=== PATIENT | female | born 1970 | race American Indian/Alaskan Native ===

== ENCOUNTER 2017-06-19 10:19 | Emergency (ER) | payer SELFPAY ==
[2017-06-19 10:50] LABS: Hematocrit 29.8 % (30.3-42.9); Hemoglobin 9.3 gm/dl (10.1-14.3); Mean Corpuscular HGB Conc 31 % (30-34); Mean Corpuscular Volume 71 fl (79-97); Platelet Count 321 K/mm3 (140-440); Red Blood Count 4.19 M/mm3 (3.65-5.03); White Blood Count 5.2 K/mm3 (4.5-11.0)
[2017-06-19 11:07] LABS: Alanine Aminotransferase 24 units/L (7-56); Albumin 4.3 g/dL (3.9-5); Albumin/Globulin Ratio 1.1 %; Alkaline Phosphatase 57 units/L (35-129); Anion Gap 21 mmol/L; Blood Urea Nitrogen 5 mg/dL (7-17); Calcium 8.6 mg/dL (8.4-10.2); Carbon Dioxide 22 mmol/L (22-30); Chloride 101.2 mmol/L (98-107); Glucose 87 mg/dL (65-100); Lipase 23 units/L (13-60); Mean Corpuscular Hemoglobin 22 pg (28-32); Potassium 3.5 mmol/L (3.6-5.0); Red Cell Distribution Width 26.8 % (13.2-15.2); Sodium 141 mmol/L (137-145); Total Protein 8.1 g/dL (6.3-8.2)
[2017-06-19 11:35] LABS: Basophils % (Manual) 0 % (0.0-1.8); Blastocytes % (Manual) 0 %
[2017-06-19 11:36] LABS: Anisocytosis 2+; Diff Status Complete; Hypochromasia 2+; Platelet Estimate Cons; Target Cells 1+
[2017-06-19 11:51] LABS: Bilirubin,Urine NEG (Negative); Blood,Urine SM (Negative); Ketones,Urine NEG (Negative); Leukocyte Esterase,Urine MOD (Negative); Nitrite,Urine NEG (Negative); Protein,Urine <15 mg/dL mg/dL (Negative); Urobilinogen,Urine < 2.0 mg/dL (<2.0)
[2017-06-19] MEDS ORDERED: SUBLIMAZE IV ONE (11:52)
[2017-06-19] MEDS ORDERED: PEPCID PO ONE (11:52)
[2017-06-19] MEDS ORDERED: ZOFRAN IV ONE (11:53)
[2017-06-19] MEDS ORDERED: NACL ONE (12:58)
--- NOTE | 2017-06-19 13:10 | Emergency Department Report ---
ED Abdominal Pain HPI - General Chief Complaint: Abdominal Pain Stated Complaint: ABD PAIN Time Seen by Provider: 06/19/17 11:33 Source: patient Mode of arrival: Wheelchair Limitations: No Limitations - History of Present Illness Initial Comments: Patient is a 46-year-old female who presents with abdominal pain that is located in the umbilical area it is a 6 out of 10 and is nonradiating nothing makes it better or worse. It has been going on for about 1 month she says it is intermittent. She is been trying aspirin to control the pain. Patient also reports mild shortness of breath on exertion but this is after she smokes she smokes one pack per day. Patient is also complaining of left foot pain is located in the sole of her heel is a 2 out 10 walking makes it worse nothing makes it better she is noticed no swelling with the pain. All of patient's complaints have been going on for 1 month she comes to the ED because he wants to get symptoms "get checked out." Severity scale (0 -10): 10 - Related Data Previous Rx's Medication Instructions Recorded Last Taken Type Lisinopril [Zestril TAB] 20 mg PO QDAY #30 tablet 08/24/13 08/24/13 Rx Acetaminophen [Tylenol] 500 mg PO Q6HR #30 tablet 06/19/17 Unknown Rx Allergies Allergy/AdvReac Type Severity Reaction Status Date / Time No Known Allergies Allergy Verified 06/19/17 10:33 ED Review of Systems ROS: Stated complaint: ABD PAIN Other details as noted in HPI Comment: All other systems reviewed and negative Constitutional: denies: chills, fever Eyes: denies: eye pain, eye discharge, vision change ENT: denies: ear pain, throat pain Respiratory: cough, SOB with exertion Cardiovascular: denies: chest pain, palpitations Endocrine: no symptoms reported Gastrointestinal: as per HPI, abdominal pain, nausea Genitourinary: denies: urgency, dysuria, discharge Musculoskeletal: other (Foot pain ). denies: joint swelling Skin: denies: rash, lesions Neurological: weakness, paresthesias Psychiatric: denies: as per HPI Hematological/Lymphatic: denies: as per HPI ED Past Medical Hx - Past Medical History Hx Hypertension: Yes Hx Congestive Heart Failure: No Hx Diabetes: Yes (no meds) Hx Asthma: (no meds) Hx COPD: No - Surgical History Additional Surgical History: TONSILLECTOMY. X 3. TUBAL LIGATION - Social History Smoking Status: Current Every Day Smoker Substance Use Type: Alcohol - Medications Home Medications: Home Medications Medication Instructions Recorded Confirmed Last Taken Type Lisinopril [Zestril TAB] 20 mg PO QDAY #30 tablet 08/24/13 08/24/13 Rx Acetaminophen [Tylenol] 500 mg PO Q6HR #30 tablet 06/19/17 Unknown Rx ED Physical Exam - General Limitations: No Limitations General appearance: alert - Head Head exam: Present: atraumatic - Eye Eye exam: Present: normal appearance - ENT ENT exam: Present: mucous membranes moist - Neck Neck exam: Present: normal inspection - Respiratory Respiratory exam: Present: normal lung sounds bilaterally. Absent: respiratory distress - GI/Abdominal GI/Abdominal exam: Present: tenderness (in umbilical area no rebound or guarding ) - Rectal Rectal exam: Present: deferred - Extremities Exam Extremities exam: Present: normal inspection, full ROM, normal capillary refill - Back Exam Back exam: Present: normal inspection - Neurological Exam Neurological exam: Present: alert, oriented X3 - Psychiatric Psychiatric exam: Present: normal affect - Skin Skin exam: Present: warm, dry ED Course Vital Signs 06/19/17 06/19/17 10:26 12:23 Temperature 98.6 F Pulse Rate 80 86 Respiratory 17 16 Rate Blood Pressure 131/85 Blood Pressure 99/69 [Left] O2 Sat by Pulse 100 100 Oximetry - Reevaluation(s) Reevaluation #1: 06/19/17 13:13 Patient received pain medicine. She states the pain is about a 5 out of 10 slightly nauseas. Patient is being taken to CT scan. Reevaluation #2: 06/19/17 14:56 Patient's pain has improved to 4 out of 10 we'll give oral Percocet and we'll send patient home. CT scan showed no acute findings and abdomen and no findings on labs can explain patient's symptoms will send patient home with tylenol. Discussed patient's need to follow up with the PCP. Patient agrees with plan and all questions about patient's care have been answered. ED Medical Decision Making - Lab Data Result diagrams: 06/19/17 10:35 06/19/17 10:35 - Medical Decision Making Chief medical diagnosis: Peptic ulcer disease Differential diagnosis: UTI, pancreatitis, abdominal tumor, metabolic abnormality. will obtain CBC, CMP, lipase, CT scan, anti-medic, pain medicine, fluids and we' ll reassess patient CT scan is unrevealing labs are unrevealing will send patient home. Critical care attestation.: If time is entered above; I have spent that time in minutes in the direct care of this critically ill patient, excluding procedure time. ED Disposition Clinical Impression: Abdominal pain, Nausea Disposition: TO HOME OR SELFCARE Is pt being admited?: No Does the pt Need Aspirin: No Condition: Good Instructions: Abdominal Pain (ED) Additional Instructions: Please see a primary care physician to address her chronic abdominal pain. Prescriptions: Acetaminophen [Tylenol] 500 mg PO Q6HR #30 tablet Referrals: PRIMARY CARE [Primary Care Provider] - 3-5 Days Time of Disposition: 15:01
--- NOTE | 2017-06-19 13:57 | Cat Scan Report ---
CT abdomen and pelvis with contrast: Periumbilical pain. Following IV contrast administration transverse images are obtained from the lower chest to the ischium with coronal and sagittal 2-D reformatted images. The lung bases are clear. Abdominal and retroperitoneal organs appear unremarkable. The bowel is unopacified but is generally normal in diameter and distribution. The appendix is visualized. No abnormal fluid accumulations or inflammatory changes identified in the mesentery or bowel. The reproductive organs are present and generally unremarkable. Impression no No pathology identified.
[2017-06-19] MEDS ORDERED: PERCOCET 5/325 PO ONE (14:55)
[2017-06-19 16:01] VITALS: BP 96/60
== END 2017-06-19 16:00 | disposition home or self-care (01) ==
LOC: ED 10:19
DX: R10.9 Unspecified abdominal pain (principal); R11.0 Nausea; M79.672 Pain in left foot; I10 Essential (primary) hypertension; E11.9 Type 2 diabetes mellitus without complications; F17.210 Nicotine dependence, cigarettes, uncomplicated
CPT/HCPCS: 36415; 74177; 80053; 81001; 83690; 84703; 85007; 85025; 96374; 96375; 99284; J2405; J3010; Q9967

== ENCOUNTER 2017-07-08 10:43 | Emergency (ER) | payer OTHER ==
--- NOTE | 2017-07-08 11:56 | Emergency Department Report ---
Chief Complaint: Chest Pain Stated Complaint: JUAN Time Seen by Provider: 07/08/17 10:51 - HPI History of Present Illness: pt c/o cough and chest pain x 3 days - ROS Review of Systems: + cough + sob + cp - Exam Vital Signs: Vital Signs 07/08/17 11:51 Temperature 97.6 F Pulse Rate 87 Respiratory 16 Rate Blood Pressure 146/112 O2 Sat by Pulse 99 Oximetry Physical Exam: pt alert and appropriate. PT has dry cough no wheezing at this time MSE screening note: Focused history and physical exam performed. Due to findings the following was ordered: ekg, labs, xr ED Disposition for MSE Condition: Stable
[2017-07-08 12:39] LABS: INR 0.92 (0.87-1.13); Partial Thromboplastin Time 29.2 Sec. (24.2-36.6)
[2017-07-08] MEDS ORDERED: PEPCID IV ONE (12:44)
[2017-07-08] MEDS ORDERED: TORADOL IV ONE (12:44)
[2017-07-08] MEDS ORDERED: ALUM-MAG HYDROX-SIMETH 200-200-20MG/5ML PO ONE (12:44)
[2017-07-08] MEDS ORDERED: CARAFATE PO ONE (12:44)
[2017-07-08] MEDS ORDERED: NACL 0.9% 250ML 250 ML IV ONE (12:44)
--- NOTE | 2017-07-08 12:45 | Emergency Department Report ---
ED Chest Pain HPI - General Chief Complaint: Chest Pain Stated Complaint: JUAN Time Seen by Provider: 07/08/17 10:51 Source: patient Mode of arrival: Ambulatory Limitations: No Limitations - History of Present Illness Initial Comments: This is a 46-year-old female. She is previously unknown to me. She does not have a local primary care doctor. She reports a past medical history of hypertension, tobacco use. The patient presents to the ER today with complaint of central chest pain. The chest pain does not radiate to the back, arms or neck. There is no nausea, vomiting or diaphoresis. There is no leg pain. There is no leg swelling. No recent trips greater than 4 hours. No recent hospitalizations. MD Complaint: chest pain -: Gradual Onset: during rest Pain Location: substernal Pain Radiation: none Severity: moderate Severity scale (0 -10): 4 Quality: aching Consistency: intermittent Improves With: nothing Worsens With: nothing re: dyspnea Other Symptoms: cough Treatments Prior to Arrival: none Aspirin use within the Past 7 Days: (0) No - Related Data On Oral Contraceptives: No Previous Rx's Medication Instructions Recorded Last Taken Type Lisinopril [Zestril TAB] 20 mg PO QDAY #30 tablet 08/24/13 08/24/13 Rx Acetaminophen [Tylenol] 500 mg PO Q6HR #30 tablet 06/19/17 Unknown Rx Pantoprazole [Protonix TAB] 20 mg PO QDAY #30 tablet. 07/08/17 Unknown Rx Pantoprazole [Protonix TAB] 20 mg PO QDAY #30 tablet. 07/08/17 Unknown Rx Ciprofloxacin HCl [Ciprofloxacin 500 mg PO Q12H #14 tab 07/09/17 Unknown Rx TAB] Folic Acid [Folvite] 1 mg PO QDAY #30 tablet 07/09/17 Unknown Rx Multivitamin Tab [Multiple Vitamin 1 each PO QDAY #30 tablet 07/09/17 Unknown Rx TAB (Theragran)] Ondansetron [Zofran Odt] 4 mg PO TID PRN #15 tab.rapdis 07/09/17 Unknown Rx Thiamine [Vitamin B-1] 100 mg PO QDAY #30 tablet 07/09/17 Unknown Rx Allergies Allergy/AdvReac Type Severity Reaction Status Date / Time No Known Allergies Allergy Verified 06/19/17 10:33 Heart Score - HEART Score History: Slightly suspicious EKG: Normal Age: 45-65 Risk factors: 1-2 risk factors Troponin: < normal limit HEART Score: 2 - Critical Actions Critical Actions: 0-3 pts:0.9-1.7%risk of adverse cardiac event.Candidate for discharge ED Review of Systems ROS: Stated complaint: JUAN Other details as noted in HPI Constitutional: malaise, weakness Eyes: denies: vision change Respiratory: cough, shortness of breath Cardiovascular: chest pain Gastrointestinal: denies: vomiting Genitourinary: denies: dysuria Musculoskeletal: denies: back pain Skin: denies: lesions Neurological: weakness Psychiatric: denies: homicidal thoughts, suicidal thoughts ED Past Medical Hx - Past Medical History Previous Medical History?: Yes Hx Hypertension: Yes Hx Congestive Heart Failure: No Hx Diabetes: Yes (no meds) Hx Asthma: (no meds) Hx COPD: No - Surgical History Past Surgical History?: Yes Additional Surgical History: TONSILLECTOMY. X 3. TUBAL LIGATION - Social History Smoking Status: Current Every Day Smoker Substance Use Type: Alcohol - Medications Home Medications: Home Medications Medication Instructions Recorded Confirmed Last Taken Type Lisinopril [Zestril TAB] 20 mg PO QDAY #30 tablet 08/24/13 07/09/17 08/24/13 Rx Acetaminophen [Tylenol] 500 mg PO Q6HR #30 tablet 06/19/17 07/09/17 Unknown Rx Pantoprazole [Protonix TAB] 20 mg PO QDAY #30 tablet. 07/08/17 07/09/17 Unknown Rx Pantoprazole [Protonix TAB] 20 mg PO QDAY #30 tablet. 07/08/17 07/09/17 Unknown Rx Ciprofloxacin HCl [Ciprofloxacin 500 mg PO Q12H #14 tab 07/09/17 Unknown Rx TAB] Folic Acid [Folvite] 1 mg PO QDAY #30 tablet 07/09/17 Unknown Rx Multivitamin Tab [Multiple Vitamin 1 each PO QDAY #30 tablet 07/09/17 Unknown Rx TAB (Theragran)] Ondansetron [Zofran Odt] 4 mg PO TID PRN #15 tab.rapdis 07/09/17 Unknown Rx Thiamine [Vitamin B-1] 100 mg PO QDAY #30 tablet 07/09/17 Unknown Rx ED Physical Exam - General Limitations: No Limitations General appearance: alert, in no apparent distress - Head Head exam: Present: atraumatic, normocephalic - Eye Eye exam: Present: normal appearance, EOMI. Absent: nystagmus - ENT ENT exam: Present: normal exam, normal orophraynx, mucous membranes moist - Neck Neck exam: Present: normal inspection, full ROM. Absent: tenderness, meningismus - Respiratory Respiratory exam: Present: normal lung sounds bilaterally, chest wall tenderness. Absent: respiratory distress, wheezes, rales, rhonchi, stridor - Cardiovascular Cardiovascular Exam: Present: regular rate, normal rhythm, normal heart sounds. Absent: bradycardia, tachycardia, irregular rhythm, systolic murmur, diastolic murmur, rubs, gallop - GI/Abdominal GI/Abdominal exam: Present: soft, normal bowel sounds. Absent: distended, tenderness, guarding, rebound, rigid, pulsatile mass - Extremities Exam Extremities exam: Present: normal inspection, full ROM, normal capillary refill. Absent: tenderness, pedal edema, joint swelling, calf tenderness - Back Exam Back exam: Present: normal inspection, full ROM. Absent: tenderness, CVA tenderness (R), CVA tenderness (L), muscle spasm, paraspinal tenderness, vertebral tenderness - Neurological Exam Neurological exam: Present: alert, oriented X3, normal gait, other. Absent: motor sensory deficit - Psychiatric Psychiatric exam: Present: normal affect, normal mood, other (Extraocular movements intact. Tongue midline. No facial droop. Facial sensation intact to light touch in the V1, V2, V3 distribution bilaterally. 5 and 5 strength in 4 extremities.. Sensation is intact to light touch in 4 extremities.). Absent : homicidal ideation, suicidal ideation - Skin Skin exam: Present: warm, dry, intact, normal color. Absent: rash ED Course Vital Signs 07/08/17 07/08/17 07/08/17 11:51 12:26 12:30 Temperature 97.6 F Pulse Rate 87 61 74 Respiratory 16 15 11 L Rate Blood Pressure 146/112 121/94 Blood Pressure [Left] O2 Sat by Pulse 99 100 Oximetry 07/08/17 07/08/17 07/08/17 12:41 12:51 13:00 Temperature 98.4 F Pulse Rate 76 66 60 Respiratory 10 L 14 14 Rate Blood Pressure 121/94 121/94 130/83 Blood Pressure 121/84 [Left] O2 Sat by Pulse 93 96 95 Oximetry 07/08/17 07/08/17 07/08/17 13:11 13:21 13:30 Temperature Pulse Rate 65 78 64 Respiratory 19 13 14 Rate Blood Pressure 130/83 130/83 124/87 Blood Pressure [Left] O2 Sat by Pulse 95 97 95 Oximetry 07/08/17 07/08/17 07/08/17 13:41 13:51 14:00 Temperature Pulse Rate 62 70 62 Respiratory 16 19 17 Rate Blood Pressure 124/87 124/87 124/80 Blood Pressure [Left] O2 Sat by Pulse 98 97 98 Oximetry 07/08/17 07/08/17 07/08/17 16:00 19:55 19:56 Temperature 98.5 F 98 F Pulse Rate 60 72 Respiratory 16 18 18 Rate Blood Pressure Blood Pressure 122/78 122/89 [Left] O2 Sat by Pulse 100 100 Oximetry 07/08/17 07/08/17 21:42 23:27 Temperature 98 F Pulse Rate 75 78 Respiratory 18 18 Rate Blood Pressure Blood Pressure 116/80 119/64 [Left] O2 Sat by Pulse 98 100 Oximetry - Reevaluation(s) Reevaluation #1: 07/08/17 13:49 Differential diagnosis: GERD, gastritis, pneumonia, bronchitis, acute coronary syndrome, pulmonary embolus, alcohol dependency Assessment and plan: 46-year-old female with chest pain and shortness of breath. Troponin is negative 1, EKG nonspecific, no pulmonary embolus or DVT risk factors, low risk by well's criteria, perc negativ d-dimer is elevated, CT scan of the chest is pending. The patient is a chronic alcoholic, she is currently sober at this time, and is not homicidal nor suicidal. She did complain of nonspecific headache, the headache is not sudden or thunderclap in nature, it did not reach maximal intensity within an hour, and her neurologic exam is unremarkable, with a GCS of 15, and an eye score of 0. Headache is a secondary complaint, her primary complaint is chest pain, given her normal neurologic examination, normal vital signs, I don't believe she requires advanced imaging. Her headache will be treated symptomatically, her chest pain will be treated symptomatically. E. Reevaluation #2: 07/08/17 14:50 ct chest pending presented to Dr Ramirez, who accepts the patient to his service for ACS risk stratification Reevaluation #3: 07/08/17 15:41 CT scan of the chest is negative for pulmonary embolus JERRI score - Jerri Score Age > 65: (0) No Aspirin use within the Past 7 Days: (0) No 3 or more CAD Risk Factors: (0) No 2 or more Angina events in past 24 hrs: (1) Yes Known CAD with more than 50% Stenosis: (0) No Elevated Cardiac Markers: (0) No ST Deviation Greater than 0.5mm: (0) No JERRI Score: 1 ED Medical Decision Making - Lab Data Result diagrams: 07/08/17 12:08 07/08/17 12:08 - EKG Data -: EKG Interpreted by Me EKG shows normal: sinus rhythm - Radiology Data Radiology results: image reviewed interpreted by me: X-ray of the chest is negative for acute disease Critical care attestation.: If time is entered above; I have spent that time in minutes in the direct care of this critically ill patient, excluding procedure time. ED Disposition Clinical Impression: Alcohol dependence, Atypical chest pain Disposition: -09 OP ADMIT IP TO THIS HOSP Is pt being admited?: Yes Does the pt Need Aspirin: Yes Condition: Good Instructions: Chest Pain (ED) Prescriptions: Pantoprazole [Protonix TAB] 20 mg PO QDAY #30 tablet. Pantoprazole [Protonix TAB] 20 mg PO QDAY #30 tablet. Referrals: PRIMARY CARE, [Primary Care Provider] - 3-5 Days
[2017-07-08 12:47] LABS: Alanine Aminotransferase 23 units/L (7-56); Albumin 4.4 g/dL (3.9-5); Albumin/Globulin Ratio 1.1 %; Alkaline Phosphatase 60 units/L (35-129); Anion Gap 28 mmol/L; Blood Urea Nitrogen 6 mg/dL (7-17); Calcium 8.8 mg/dL (8.4-10.2); Carbon Dioxide 19 mmol/L (22-30); Glucose 80 mg/dL (65-100); Hemoglobin 9.6 gm/dl (10.1-14.3); Mean Corpuscular HGB Conc 32 % (30-34); Mean Corpuscular Hemoglobin 23 pg (28-32); Mean Corpuscular Volume 71 fl (79-97); Platelet Count 255 K/mm3 (140-440); Potassium 3.7 mmol/L (3.6-5.0); Red Blood Count 4.24 M/mm3 (3.65-5.03); Red Cell Distribution Width 26.2 % (13.2-15.2); Sodium 143 mmol/L (137-145); Total Protein 8.5 g/dL (6.3-8.2); White Blood Count 5.5 K/mm3 (4.5-11.0)
--- NOTE | 2017-07-08 13:48 | XRay Report ---
CHEST ONE VIEW INDICATION: Chest pain. COMPARISON: 10/12/2013. FINDINGS: Portable, single, frontal chest radiograph demonstrates normal cardiomediastinal silhouette. Clear lungs. Unremarkable bones. Extrinsic EKG leads. CONCLUSION: No acute disease in the chest. Thank you for the opportunity to participate in this patient's care.
[2017-07-08 13:49] LABS: Anisocytosis 3+; Blastocytes % (Manual) 0 %; Eosinophils % (Manual) 0 % (0.0-4.3); Hypochromasia 1+
[2017-07-08 13:50] LABS: Diff Status Complete; Target Cells 1+
--- NOTE | 2017-07-08 14:05 | History and Physical Report ---
History of Present Illness Chief complaint: My chest was hurting History of present illness: 46 YO Female with HTN, Nicotine Dependence, DM, Medicaton Noncompliance presents to ED for evaluation. Pt seen and evaluated in ED for chest pain. Pt underwent serial ekg, and cardiac enzyme evaluation which were unremarkable. D dimer was elevated, but CTA chest was negative for PE. Pt medically optimized and back to usual state of health. Pt discharged home with PPI therapy and instructed to f/u with pcp 1wk, and cardiology prn. Past History Past Medical History: diabetes, hypertension Past Surgical History: , tonsillectomy Social history: single, smoking Family history: hypertension Medications and Allergies Allergies Allergy/AdvReac Type Severity Reaction Status Date / Time No Known Allergies Allergy Verified 06/19/17 10:33 Home Medications Medication Instructions Recorded Confirmed Last Taken Type Lisinopril [Zestril TAB] 20 mg PO QDAY #30 tablet 08/24/13 08/24/13 Rx Acetaminophen [Tylenol] 500 mg PO Q6HR #30 tablet 06/19/17 Unknown Rx Pantoprazole [Protonix TAB] 20 mg PO QDAY #30 tablet. 07/08/17 Unknown Rx Pantoprazole [Protonix TAB] 20 mg PO QDAY #30 tablet. 07/08/17 Unknown Rx Review of Systems All systems: negative Constitutional: no weight loss, no weight gain, no fever Ears, nose, mouth and throat: no ear pain, no ear discharge, no tinnitis Cardiovascular: chest pain, no orthopnea, no syncope, no lightheadedness, no dyspnea on exertion, no paroxysmal nocturnal dyspnea Respiratory: no cough, no cough with sputum, no excessive sputum Gastrointestinal: no abdominal pain, no nausea, no vomiting Genitourinary Female: no dyspareunia, no dysmenorrhea, no flank pain Menstruation: no premenarcheal, no post hysterectomy, no ammenorrhea on BC Rectal: no pain, no incontinence, no bleeding Musculoskeletal: no neck stiffness, no neck pain, no shooting arm pain Integumentary: no rash, no pruritis, no redness Neurological: no head injury, no transient paralysis, no paralysis, no lack of coordination Psychiatric: no memory loss, no change in sleep habits, no sleep disturbances, no insomnia Endocrine: no cold intolerance, no heat intolerance, no polyphagia, no excessive thirst Hematologic/Lymphatic: no easy bruising, no easy bleeding Allergic/Immunologic: no urticaria, no wheezing Exam - Constitutional Vitals: Temp Pulse Resp BP Pulse Ox 98.4 F 61 20 121/84 100 07/08/17 12:41 07/08/17 12:41 07/08/17 12:41 07/08/17 12:41 07/08/17 12:41 General appearance: Present: no acute distress, well-nourished - EENT Eyes: Present: PERRL ENT: hearing intact, clear oral mucosa - Neck Neck: Present: supple, normal ROM - Respiratory Respiratory effort: normal Respiratory: bilateral: CTA - Cardiovascular Heart Sounds: Present: S1 & S2. Absent: rub, click - Extremities Extremities: pulses symmetrical, No edema Peripheral Pulses: within normal limits - Abdominal General gastrointestinal: Present: soft, non-tender, non-distended, normal bowel sounds Female genitourinary: Present: normal - Integumentary Integumentary: Present: clear, warm, dry - Musculoskeletal Musculoskeletal: gait normal, strength equal bilaterally - Psychiatric Psychiatric: appropriate mood/affect, intact judgment & insight - Neurologic Neurologic: CNII-XII intact, moves all extremities Results - Labs CBC & Chem 7: 07/08/17 12:08 07/08/17 12:08 Labs: Abnormal lab results 07/08/17 07/08/17 07/08/17 Range/Units 12:08 12:08 12:08 Hgb 9.6 L (10.1-14.3) gm/dl Hct 30.0 L (30.3-42.9) % MCV 71 L (79-97) fl MCH 23 L (28-32) pg RDW 26.2 H (13.2-15.2) % Lymphocytes % (Manual) 52.0 H (13.4-35.0) % D-Dimer 246.68 H (0-234) ng/mlDDU Carbon Dioxide 19 L (22-30) mmol/L BUN 6 L (7-17) mg/dL Creatinine 0.5 L (0.7-1.2) mg/dL AST 49 H (5-40) units/L Total Protein 8.5 H (6.3-8.2) g/dL Assessment and Plan - Patient Problems (1) Atypical chest pain Current Visit: Yes Status: Acute Plan to address problem: Serial cardiac enzymes, ekg, telemetry , unremaikable, CTA chest negative. F/U pcp 1wk, cardiology prn, (2) GERD (gastroesophageal reflux disease) Current Visit: Yes Status: Acute Qualifiers: Esophagitis presence: E Plan to address problem: PPI therapy (3) Noncompliance Current Visit: Yes Status: Acute Plan to address problem: Pt counseled,
[2017-07-08] MEDS ORDERED: NACL ONE ×2 (14:06→14:07)
--- NOTE | 2017-07-08 15:06 | Cat Scan Report ---
CTA CHEST INDICATION: Chest pain, dyspnea. COMPARISON: None similar at this institution. FINDINGS: Chest CTA performed following intravenous administration of 100 cc of Omnipaque 350. Rotational MIP's also obtained. Normal heart size. No effusions. No aortic aneurysm, dissection or suspicious pulmonary arterial filling defects. No size significant adenopathy. Normal airway. Unremarkable thyroid. Clear lungs. Mild nonspecific distal esophageal wall prominence/thickening, not excluded for gastroesophageal reflux and/or hiatal hernia, amongst others. Images through included upper abdomen reveal diffuse fatty liver with approximately 6.5 x 2.3 x 4 cm more hypodense pericholecystic area in the left hepatic lobe anteriorly on axial images [id number], series 6, that on 06/19/[address] images demonstrates blood vessels coursing through it, representing increased focal fatty infiltration and is new since December 2011 CT. Mild degenerative spurring at few imaged spinal levels. CONCLUSION: No CT evidence of pulmonary embolism with fatty liver and few other incidental findings, as above. Thank you for the opportunity to participate in this patient's care.
[2017-07-08 23:28] VITALS: BP 119/64
== END 2017-07-08 23:30 | disposition admitted as inpatient to this hospital (09) ==
LOC: ED 10:43
DX: R07.89 Other chest pain (principal); F10.20 Alcohol dependence, uncomplicated; I10 Essential (primary) hypertension; E11.9 Type 2 diabetes mellitus without complications; F17.200 Nicotine dependence, unspecified, uncomplicated
CPT/HCPCS: 36415; 71010; 71275; 80053; 84484; 84703; 85007; 85025; 85379; 85610; 85730; 93005; 93010; 96361; 96374; 96375; 99285; J1885; J7050; Q9967

== ENCOUNTER 2017-07-09 08:55 | Emergency (ER) | payer SELFPAY ==
[2017-07-09 09:39] LABS: Mean Corpuscular HGB Conc 30 % (30-34); Mean Corpuscular Volume 74 fl (79-97); Platelet Count 252 K/mm3 (140-440); Red Blood Count 4.29 M/mm3 (3.65-5.03); White Blood Count 11.9 K/mm3 (4.5-11.0)
[2017-07-09 09:40] LABS: Hematocrit 31.7 % (30.3-42.9); Hemoglobin 9.4 gm/dl (10.1-14.3); Mean Corpuscular Hemoglobin 22 pg (28-32); Red Cell Distribution Width 26.7 % (13.2-15.2)
[2017-07-09 09:55] LABS: Blood Urea Nitrogen 9 mg/dL (7-17); Calcium 8.9 mg/dL (8.4-10.2); Carbon Dioxide 12 mmol/L (22-30); Chloride 94.8 mmol/L (98-107); Glucose 63 mg/dL (65-100); Sodium 139 mmol/L (137-145)
[2017-07-09 10:17] LABS: Anion Gap 37 mmol/L
[2017-07-09 10:18] LABS: Potassium 4.5 mmol/L (3.6-5.0)
[2017-07-09 10:20] LABS: Blastocytes % (Manual) 0 %; Eosinophils % (Manual) 0 % (0.0-4.3)
[2017-07-09 10:21] LABS: Anisocytosis 3+; Hypochromasia 2+; Microcytosis 1+
[2017-07-09 10:22] LABS: Diff Status Complete; Target Cells 1+
[2017-07-09] MEDS ORDERED: PEPCID IV ONE (16:12)
[2017-07-09] MEDS ORDERED: ZOFRAN IV ONE (16:12)
--- NOTE | 2017-07-09 16:14 | Emergency Department Report ---
ED General Adult HPI - General Chief complaint: Nausea/Vomiting/Diarrhea Stated complaint: VOMTING/HEADACHE/SHAKES Time Seen by Provider: 07/09/17 16:12 Source: patient, RN notes reviewed, old records reviewed Mode of arrival: Ambulatory Limitations: No Limitations - History of Present Illness Initial comments: This is a 46-year-old female. I have evaluated her previously. Please see my note from 07/08/2017. The patient presents to the ER today complaining of intractable nausea or vomiting, weakness, dehydration, general shakes. Patient reports last alcohol consumption was yesterday. She denies chest pain at this time. She has mild epigastric discomfort. She also complains of mild headache, which is global, throbbing, and not sudden or thunderclap in nature. She is neither homicidal nor suicidal. Patient was seen in the ER yesterday for chest pain, had a negative CT scan of the chest for pulmonary embolus, and was ruled out for myocardial infarction with 3 sets of cardiac enzymes. -: Gradual Consistency: constant Improves with: eating Worsens with: medication, rest Associated Symptoms: loss of appetite, malaise, nausea/vomiting, weakness - Related Data Previous Rx's Medication Instructions Recorded Last Taken Type Lisinopril [Zestril TAB] 20 mg PO QDAY #30 tablet 08/24/13 08/24/13 Rx Acetaminophen [Tylenol] 500 mg PO Q6HR #30 tablet 06/19/17 Unknown Rx Pantoprazole [Protonix TAB] 20 mg PO QDAY #30 tablet. 07/08/17 Unknown Rx Pantoprazole [Protonix TAB] 20 mg PO QDAY #30 tablet. 07/08/17 Unknown Rx Ciprofloxacin HCl [Ciprofloxacin 500 mg PO Q12H #14 tab 07/09/17 Unknown Rx TAB] Folic Acid [Folvite] 1 mg PO QDAY #30 tablet 07/09/17 Unknown Rx Multivitamin Tab [Multiple Vitamin 1 each PO QDAY #30 tablet 07/09/17 Unknown Rx TAB (Theragran)] Ondansetron [Zofran Odt] 4 mg PO TID PRN #15 tab.rapdis 07/09/17 Unknown Rx Thiamine [Vitamin B-1] 100 mg PO QDAY #30 tablet 07/09/17 Unknown Rx Allergies Allergy/AdvReac Type Severity Reaction Status Date / Time No Known Allergies Allergy Verified 06/19/17 10:33 ED Review of Systems ROS: Stated complaint: VOMTING/HEADACHE/SHAKES Other details as noted in HPI Constitutional: malaise, weakness Eyes: denies: vision change ENT: denies: epistaxis Respiratory: denies: cough Cardiovascular: denies: chest pain Gastrointestinal: abdominal pain, nausea, vomiting Genitourinary: denies: dysuria Musculoskeletal: denies: back pain Skin: denies: lesions Neurological: weakness Psychiatric: anxiety ED Past Medical Hx - Past Medical History Previous Medical History?: Yes Hx Hypertension: Yes Hx Congestive Heart Failure: No Hx Diabetes: Yes (no meds) Hx Asthma: (no meds) Hx COPD: No - Surgical History Past Surgical History?: Yes Additional Surgical History: TONSILLECTOMY. X 3. TUBAL LIGATION - Social History Smoking Status: Current Every Day Smoker Substance Use Type: Alcohol - Medications Home Medications: Home Medications Medication Instructions Recorded Confirmed Last Taken Type Lisinopril [Zestril TAB] 20 mg PO QDAY #30 tablet 08/24/13 07/09/17 08/24/13 Rx Acetaminophen [Tylenol] 500 mg PO Q6HR #30 tablet 06/19/17 07/09/17 Unknown Rx Pantoprazole [Protonix TAB] 20 mg PO QDAY #30 tablet. 07/08/17 07/09/17 Unknown Rx Pantoprazole [Protonix TAB] 20 mg PO QDAY #30 tablet. 07/08/17 07/09/17 Unknown Rx Ciprofloxacin HCl [Ciprofloxacin 500 mg PO Q12H #14 tab 07/09/17 Unknown Rx TAB] Folic Acid [Folvite] 1 mg PO QDAY #30 tablet 07/09/17 Unknown Rx Multivitamin Tab [Multiple Vitamin 1 each PO QDAY #30 tablet 07/09/17 Unknown Rx TAB (Theragran)] Ondansetron [Zofran Odt] 4 mg PO TID PRN #15 tab.rapdis 07/09/17 Unknown Rx Thiamine [Vitamin B-1] 100 mg PO QDAY #30 tablet 07/09/17 Unknown Rx ED Physical Exam - General Limitations: No Limitations General appearance: alert, in no apparent distress - Head Head exam: Present: atraumatic, normocephalic - Eye Eye exam: Present: normal appearance, EOMI - ENT ENT exam: Present: mucous membranes dry, other (tongue fasciculations are noted) - Neck Neck exam: Present: normal inspection, full ROM - Respiratory Respiratory exam: Present: normal lung sounds bilaterally. Absent: respiratory distress, wheezes, rales, rhonchi, stridor, chest wall tenderness, accessory muscle use, decreased breath sounds, prolonged expiratory - Cardiovascular Cardiovascular Exam: Present: regular rate, normal rhythm, normal heart sounds. Absent: bradycardia, tachycardia, irregular rhythm, systolic murmur, diastolic murmur, rubs, gallop - GI/Abdominal GI/Abdominal exam: Present: soft, normal bowel sounds. Absent: distended, tenderness, guarding, rebound, rigid, pulsatile mass - Extremities Exam Extremities exam: Present: normal inspection, full ROM, normal capillary refill. Absent: pedal edema, joint swelling, calf tenderness - Back Exam Back exam: Present: normal inspection, full ROM. Absent: tenderness, CVA tenderness (R), CVA tenderness (L), muscle spasm, paraspinal tenderness, vertebral tenderness - Neurological Exam Neurological exam: Present: alert, oriented X3, normal gait, other (Extraocular movements intact. Tongue midline. No facial droop. Facial sensation intact to light touch in the V1, V2, V3 distribution bilaterally. 5 and 5 strength in 4 extremities.. Sensation is intact to light touch in 4 extremities.). Absent : motor sensory deficit - Psychiatric Psychiatric exam: Present: anxious. Absent: homicidal ideation, suicidal ideation - Skin Skin exam: Present: warm, dry, intact, normal color. Absent: rash ED Course Vital Signs 07/09/17 07/09/17 07/09/17 09:08 16:20 16:28 Temperature 98.4 F 98.1 F Pulse Rate 87 75 69 Respiratory 18 15 16 Rate Blood Pressure 140/108 Blood Pressure 125/83 [Left] O2 Sat by Pulse 100 100 Oximetry 07/09/17 07/09/17 07/09/17 16:29 17:00 18:00 Temperature Pulse Rate 94 H 85 Respiratory 16 19 23 Rate Blood Pressure 125/83 125/83 Blood Pressure [Left] O2 Sat by Pulse 100 100 100 Oximetry 07/09/17 07/09/17 07/09/17 18:48 19:00 20:00 Temperature Pulse Rate 79 81 89 Respiratory 18 20 20 Rate Blood Pressure 110/63 110/63 Blood Pressure 116/72 [Left] O2 Sat by Pulse 100 100 100 Oximetry 07/09/17 07/09/17 07/09/17 21:00 22:00 23:00 Temperature Pulse Rate 86 84 79 Respiratory 19 23 15 Rate Blood Pressure 110/63 135/92 134/93 Blood Pressure [Left] O2 Sat by Pulse 98 100 100 Oximetry ED Medical Decision Making - Lab Data Result diagrams: 07/09/17 09:14 07/09/17 19:36 Vital Signs 07/09/17 07/09/17 07/09/17 09:08 16:28 16:29 Temperature 98.4 F 98.1 F Pulse Rate 87 69 Respiratory 18 16 16 Rate Blood Pressure 140/108 Blood Pressure 125/83 [Left] O2 Sat by Pulse 100 100 100 Oximetry Lab Results 07/09/17 07/09/17 07/09/17 Range/Units 09:14 09:14 16:21 WBC 11.9 H (4.5-11.0) K/mm3 RBC 4.29 (3.65-5.03) M/mm3 Hgb 9.4 L (10.1-14.3) gm/dl Hct 31.7 (30.3-42.9) % MCV 74 L (79-97) fl MCH 22 L (28-32) pg MCHC 30 (30-34) % RDW 26.7 H (13.2-15.2) % Plt Count 252 (140-440) K/mm3 Add Manual Diff Complete Total Counted 100 Seg Neuts % (Manual) 89.0 H (40.0-70.0) % Band Neutrophils % 6.0 % Lymphocytes % (Manual) 2.0 L (13.4-35.0) % Reactive Lymphs % (Man) 0 % Monocytes % (Manual) 3.0 (0.0-7.3) % Eosinophils % (Manual) 0 (0.0-4.3) % Metamyelocytes % 0 % Myelocytes % 0 % Promyelocytes % 0 % Blast Cells % 0 % Nucleated RBC % Not Reportable Seg Neutrophils # Man 10.6 H (1.8-7.7) K/mm3 Band Neutrophils # 0.7 K/mm3 Lymphocytes # (Manual) 0.2 L (1.2-5.4) K/mm3 Abs React Lymphs (Man) 0.0 K/mm3 Monocytes # (Manual) 0.4 (0.0-0.8) K/mm3 Eosinophils # (Manual) 0.0 (0.0-0.4) K/mm3 Basophils # (Manual) 0.0 (0.0-0.1) K/mm3 Metamyelocytes # 0.0 K/mm3 Myelocytes # 0.0 K/mm3 Promyelocytes # 0.0 K/mm3 Blast Cells # 0.0 K/mm3 WBC Morphology Not Reportable Hypersegmented Neuts Not Reportable Hyposegmented Neuts Not Reportable Hypogranular Neuts Not Reportable Smudge Cells Not Reportable Toxic Granulation Not Reportable Toxic Vacuolation Not Reportable Dohle Bodies Not Reportable Pelger-Huet Anomaly Not Reportable Joel Rods Not Reportable Platelet Estimate Not Reportable Clumped Platelets Not Reportable Plt Clumps, EDTA Not Reportable Large Platelets Not Reportable Giant Platelets Not Reportable Platelet Satelliting Not Reportable Plt Morphology Comment Not Reportable RBC Morphology Not Reportable Dimorphic RBCs Not Reportable Polychromasia Not Reportable Hypochromasia 2+ Poikilocytosis Not Reportable Anisocytosis 3+ Microcytosis 1+ Macrocytosis Not Reportable Spherocytes Not Reportable Pappenheimer Bodies Not Reportable Sickle Cells Not Reportable Target Cells 1+ Tear Drop Cells Not Reportable Ovalocytes Not Reportable Helmet Cells Not Reportable [place] Bodies Not Reportable Maiden Rings Not Reportable Devora Cells Not Reportable Bite Cells Not Reportable Crenated Cell Not Reportable Elliptocytes Not Reportable Acanthocytes (Spur) Not Reportable Rouleaux Not Reportable Hemoglobin C Crystals Not Reportable Schistocytes Not Reportable Malaria parasites Not Reportable Ming Bodies Not Reportable Hem Pathologist Commnt No Sodium 139 (137-145) mmol/L Potassium 4.5 D (3.6-5.0) mmol/L Chloride 94.8 L (98-107) mmol/L Carbon Dioxide 12 L D (22-30) mmol/L Anion Gap 37 mmol/L BUN 9 (7-17) mg/dL Creatinine 0.6 L (0.7-1.2) mg/dL Estimated GFR > 60 ml/min BUN/Creatinine Ratio 15.00 % Glucose 63 L (65-100) mg/dL Lactic Acid 2.30 H* (0.7-2.0) mmol/L Calcium 8.9 (8.4-10.2) mg/dL Magnesium (1.7-2.3) mg/dL Troponin T (0.00-0.029) ng/mL Lipase (13-60) units/L Urine Color (Yellow) Urine Turbidity (Clear) Urine pH (5.0-7.0) Ur Specific Marshall (1.003-1.030) Urine Protein (Negative) mg/dL Urine Glucose (UA) (Negative) mg/dL Urine Ketones (Negative) mg/dL Urine Blood (Negative) Urine Nitrite (Negative) Urine Bilirubin (Negative) Urine Urobilinogen (<2.0) mg/dL Ur Leukocyte Esterase (Negative) Urine WBC (Auto) (0.0-6.0) /HPF Urine RBC (Auto) (0.0-6.0) /HPF U Epithel Cells (Auto) (0-13.0) /HPF 07/09/17 07/09/17 07/09/17 Range/Units 16:21 16:21 16:28 WBC (4.5-11.0) K/mm3 RBC (3.65-5.03) M/mm3 Hgb (10.1-14.3) gm/dl Hct (30.3-42.9) % MCV (79-97) fl MCH (28-32) pg MCHC (30-34) % RDW (13.2-15.2) % Plt Count (140-440) K/mm3 Add Manual Diff Total Counted Seg Neuts % (Manual) (40.0-70.0) % Band Neutrophils % % Lymphocytes % (Manual) (13.4-35.0) % Reactive Lymphs % (Man) % Monocytes % (Manual) (0.0-7.3) % Eosinophils % (Manual) (0.0-4.3) % Metamyelocytes % % Myelocytes % % Promyelocytes % % Blast Cells % % Nucleated RBC % Seg Neutrophils # Man (1.8-7.7) K/mm3 Band Neutrophils # K/mm3 Lymphocytes # (Manual) (1.2-5.4) K/mm3 Abs React Lymphs (Man) K/mm3 Monocytes # (Manual) (0.0-0.8) K/mm3 Eosinophils # (Manual) (0.0-0.4) K/mm3 Basophils # (Manual) (0.0-0.1) K/mm3 Metamyelocytes # K/mm3 Myelocytes # K/mm3 Promyelocytes # K/mm3 Blast Cells # K/mm3 WBC Morphology Hypersegmented Neuts Hyposegmented Neuts Hypogranular Neuts Smudge Cells Toxic Granulation Toxic Vacuolation Dohle Bodies Pelger-Huet Anomaly Joel Rods Platelet Estimate Clumped Platelets Plt Clumps, EDTA Large Platelets Giant Platelets Platelet Satelliting Plt Morphology Comment RBC Morphology Dimorphic RBCs Polychromasia Hypochromasia Poikilocytosis Anisocytosis Microcytosis Macrocytosis Spherocytes Pappenheimer Bodies Sickle Cells Target Cells Tear Drop Cells Ovalocytes Helmet Cells [place] Bodies Maiden Rings [place] Cells Bite Cells Crenated Cell Elliptocytes Acanthocytes (Spur) Rouleaux Hemoglobin C Crystals Schistocytes Malaria parasites Ming Bodies Hem Pathologist Commnt Sodium (137-145) mmol/L Potassium (3.6-5.0) mmol/L Chloride (98-107) mmol/L Carbon Dioxide (22-30) mmol/L Anion Gap mmol/L BUN (7-17) mg/dL Creatinine (0.7-1.2) mg/dL Estimated GFR ml/min BUN/Creatinine Ratio % Glucose (65-100) mg/dL Lactic Acid (0.7-2.0) mmol/L Calcium (8.4-10.2) mg/dL Magnesium 2.10 (1.7-2.3) mg/dL Troponin T < 0.010 (0.00-0.029) ng/mL Lipase 11 L (13-60) units/L Urine Color Yellow (Yellow) Urine Turbidity Clear (Clear) Urine pH 5.0 (5.0-7.0) Ur Specific Marshall 1.023 (1.003-1.030) Urine Protein 100 mg/dl (Negative) mg/dL Urine Glucose (UA) Neg (Negative) mg/dL Urine Ketones 80 (Negative) mg/dL Urine Blood Sm (Negative) Urine Nitrite Neg (Negative) Urine Bilirubin Neg (Negative) Urine Urobilinogen < 2.0 (<2.0) mg/dL Ur Leukocyte Esterase Neg (Negative) Urine WBC (Auto) 4.0 (0.0-6.0) /HPF Urine RBC (Auto) 2.0 (0.0-6.0) /HPF U Epithel Cells (Auto) 2.0 (0-13.0) /HPF - EKG Data -: EKG Interpreted by Me EKG shows normal: sinus rhythm, axis, QRS complexes - EKG Data When compared to previous EKG there are: no significant change - Medical Decision Making Differential diagnosis: Alcohol withdrawal, dehydration, starvation ketosis, electrolyte derangement Assessment and plan: 46-year-old female with reported history of nausea and vomiting and dehydration. She is found to be hypoglycemic, with an anion gap of 37, consistent with alcoholic starvation ketosis. Has a mild component of alcohol withdrawal, as she has active tongue fasciculations. She is not required 1013 or involuntary hold at this time. The patient will be treated aggressively with Ativan, she will be started on the CIWA protocol, she will also be given a banana bag, and D5 for glucose replenishment/supplementation. Given her profound metabolic derangement, anion gap acidosis, the patient is not suitable for discharge at this time, and she is presented to the Hospital physician, Dr. Ramirez, who graciously accepts the patient to his service. Critical care attestation.: If time is entered above; I have spent that time in minutes in the direct care of this critically ill patient, excluding procedure time. ED Disposition Clinical Impression: Metabolic acidosis, Starvation ketoacidosis, Alcohol dependence, Hypoglycemia Disposition: OP ADMIT IP TO THIS HOSP Is pt being admited?: Yes Condition: Good Prescriptions: Ciprofloxacin HCl [Ciprofloxacin TAB] 500 mg PO Q12H #14 tab Folic Acid [Folvite] 1 mg PO QDAY #30 tablet Multivitamin Tab [Multiple Vitamin TAB (Theragran)] 1 each PO QDAY #30 tablet Ondansetron [Zofran Odt] 4 mg PO TID PRN #15 tab.rapdis PRN Reason: Nausea Thiamine [Vitamin B-1] 100 mg PO QDAY #30 tablet Referrals: PRIMARY CARE, [Primary Care Provider] - 3-5 Days
[2017-07-09] MEDS ORDERED: ATIVAN IV STA (16:37)
[2017-07-09] MEDS ORDERED: LIBRIUM PO PRN (16:37)
[2017-07-09] MEDS ORDERED: ATIVAN IV PRN (16:37)
[2017-07-09] MEDS ORDERED: D50W (25GM) Syringe IV ONE ×2 (16:44→20:00)
[2017-07-09 16:47] LABS: Bilirubin,Urine NEG (Negative); Blood,Urine SM (Negative); Ketones,Urine 80 mg/dL (Negative); Leukocyte Esterase,Urine NEG (Negative); Nitrite,Urine NEG (Negative); Urobilinogen,Urine < 2.0 mg/dL (<2.0)
[2017-07-09 16:52] LABS: Lipase 11 units/L (13-60)
[2017-07-09] MEDS ORDERED: D50W (25GM) Vial IV ONE (17:00)
[2017-07-09] MEDS ORDERED: D5/0.45NS 1,000 ML IV SCH (17:00)
[2017-07-09] MEDS ORDERED: NACL 0.45% 2,000 ML IV SCH (17:00)
[2017-07-09] MEDS ORDERED: VITAMIN B-1 100 MG, FOLVITE 1 MG, INFUVITE 10 ML in NACL 0.9% 1000 ML 1,000 ML IV ONE (17:12)
[2017-07-09 19:00] LABS: Urine Drugs of Abuse Note Disclamer
[2017-07-09 20:10] LABS: BUN/Creatinine Ratio 16.66; Blood Urea Nitrogen 10 mg/dL (7-17); Calcium 8.5 mg/dL (8.4-10.2); Carbon Dioxide 20 mmol/L (22-30); Chloride 97.7 mmol/L (98-107); Glucose 135 mg/dL (65-100); Potassium 4.9 mmol/L (3.6-5.0); Sodium 137 mmol/L (137-145)
[2017-07-09 20:23] LABS: Anion Gap 24 mmol/L
[2017-07-09] MEDS ORDERED: NACL 0.9% 500 ML 500 ML IV ONE (20:50)
--- NOTE | 2017-07-09 20:59 | History and Physical Report ---
History of Present Illness Chief complaint: I been throwing up all day History of present illness: 46 YO Female with HTN, Nicotine Dependence, DM, Medicaton Noncompliance presents to ED for evaluation. Pt seen and evaluated in ED for chest pain on yesterday, and represents to ED for revaluation today. Pt states that she has experienced multiple episodes of nausea and vomiting today. Pt states that she last consumed beer yesterday which she does about three times per week. Pt seen and evaluated in ED and treated with IVF resuscitation therapy. No witnessed vomiting or loose stools in ED. Pt medically optimize and back to usual state of health. Pt discharged home and instructed to f/u pcp 1wk for f/u care and reevaluation. Past History Past Medical History: hypertension Past Surgical History: , tonsillectomy, Other (tubal ligation) Social history: single, smoking, alcohol abuse Family history: hypertension Medications and Allergies Allergies Allergy/AdvReac Type Severity Reaction Status Date / Time No Known Allergies Allergy Verified 06/19/17 10:33 Home Medications Medication Instructions Recorded Confirmed Last Taken Type Lisinopril [Zestril TAB] 20 mg PO QDAY #30 tablet 08/24/13 07/09/17 08/24/13 Rx Acetaminophen [Tylenol] 500 mg PO Q6HR #30 tablet 06/19/17 07/09/17 Unknown Rx Pantoprazole [Protonix TAB] 20 mg PO QDAY #30 tablet. 07/08/17 07/09/17 Unknown Rx Pantoprazole [Protonix TAB] 20 mg PO QDAY #30 tablet. 07/08/17 07/09/17 Unknown Rx Ciprofloxacin HCl [Ciprofloxacin 500 mg PO Q12H #14 tab 07/09/17 Unknown Rx TAB] Folic Acid [Folvite] 1 mg PO QDAY #30 tablet 07/09/17 Unknown Rx Multivitamin Tab [Multiple Vitamin 1 each PO QDAY #30 tablet 07/09/17 Unknown Rx TAB (Theragran)] Ondansetron [Zofran Odt] 4 mg PO TID PRN #15 tab.rapdis 07/09/17 Unknown Rx Thiamine [Vitamin B-1] 100 mg PO QDAY #30 tablet 07/09/17 Unknown Rx Active Meds: Active Medications Chlordiazepoxide HCl (Librium) 50 mg PO Q1HR PRN PRN Reason: [facility]-Tim 07-08 Thiamine HCl 100 mg/ Folic Acid 1 mg/ Multivitamins/Minerals 10 ml/ Sodium Chloride 1,011.2 mls @ 250 mls/hr IV ONCE.ED ONE Stop: 07/09/17 21:14 Last Admin: 07/09/17 16:48 Dose: 250 mls/hr Dextrose/Sodium Chloride (D5/0.45ns) 1,000 mls @ 0 mls/hr IV DIRECT LALO PRN Reason: Wide Open Last Admin: 07/09/17 16:43 Dose: 999 mls/hr Sodium Chloride (Nacl 0.45%) 2,000 mls @ 1,000 mls/hr IV DIRECT LALO Sodium Chloride (Nacl 0.9% 500 Ml) 500 mls @ 999 mls/hr IV ONCE ONE Stop: 07/09/17 21:20 Lorazepam (Ativan) 2 mg IV Q1HR PRN PRN Reason: [facility]-Tim 07-08 Review of Systems Constitutional: no weight loss, no weight gain, no fever Ears, nose, mouth and throat: no ear pain, no ear discharge, no tinnitis Breasts: no change in shape, no swelling Cardiovascular: no chest pain, no orthopnea, no palpitations, no rapid/ irregular heart beat Respiratory: no cough, no cough with sputum, no excessive sputum Gastrointestinal: nausea, vomiting, no abdominal pain Genitourinary Female: no dysmenorrhea, no pelvic pain, no flank pain Rectal: no pain, no incontinence, no bleeding Musculoskeletal: no neck stiffness, no neck pain, no low back pain Integumentary: no rash, no pruritis, no blisters Neurological: no head injury, no transient paralysis, no paralysis, no weakness , no parathesias Psychiatric: no anxiety, no memory loss, no change in sleep habits, no sleep disturbances Endocrine: no cold intolerance, no heat intolerance, no polyphagia, no excessive thirst Hematologic/Lymphatic: no easy bruising, no easy bleeding Allergic/Immunologic: no urticaria, no allergic rhinitis, no wheezing Exam - Constitutional Vitals: Temp Pulse Resp BP Pulse Ox 98.1 F 81 20 110/63 100 07/09/17 16:28 07/09/17 19:00 07/09/17 19:00 07/09/17 19:00 07/09/17 19:00 General appearance: Present: no acute distress, disheveled, malodorous - EENT Eyes: Present: PERRL ENT: hearing intact, clear oral mucosa - Neck Neck: Present: supple, normal ROM - Respiratory Respiratory effort: normal Respiratory: bilateral: CTA - Cardiovascular Heart Sounds: Present: S1 & S2. Absent: rub, click - Extremities Extremities: pulses symmetrical, No edema Peripheral Pulses: within normal limits - Abdominal General gastrointestinal: Present: soft, non-tender, non-distended, normal bowel sounds Female genitourinary: Present: normal - Integumentary Integumentary: Present: clear, warm, dry - Musculoskeletal Musculoskeletal: gait normal, strength equal bilaterally - Psychiatric Psychiatric: appropriate mood/affect, intact judgment & insight - Neurologic Neurologic: CNII-XII intact, moves all extremities Results - Labs CBC & Chem 7: 07/09/17 09:14 07/09/17 19:36 Labs: Abnormal lab results 07/09/17 07/09/17 07/09/17 Range/Units 09:14 09:14 16:21 WBC 11.9 H (4.5-11.0) K/mm3 Hgb 9.4 L (10.1-14.3) gm/dl MCV 74 L (79-97) fl MCH 22 L (28-32) pg RDW 26.7 H (13.2-15.2) % Seg Neuts % (Manual) 89.0 H (40.0-70.0) % Lymphocytes % (Manual) 2.0 L (13.4-35.0) % Seg Neutrophils # Man 10.6 H (1.8-7.7) K/mm3 Lymphocytes # (Manual) 0.2 L (1.2-5.4) K/mm3 Chloride 94.8 L (98-107) mmol/L Carbon Dioxide 12 L D (22-30) mmol/L Creatinine 0.6 L (0.7-1.2) mg/dL Glucose 63 L (65-100) mg/dL POC Glucose (70-105) Lactic Acid 2.30 H* (0.7-2.0) mmol/L Lipase (13-60) units/L 07/09/17 07/09/17 07/09/17 Range/Units 16:21 17:40 18:50 WBC (4.5-11.0) K/mm3 Hgb (10.1-14.3) gm/dl MCV (79-97) fl MCH (28-32) pg RDW (13.2-15.2) % Seg Neuts % (Manual) (40.0-70.0) % Lymphocytes % (Manual) (13.4-35.0) % Seg Neutrophils # Man (1.8-7.7) K/mm3 Lymphocytes # (Manual) (1.2-5.4) K/mm3 Chloride (98-107) mmol/L Carbon Dioxide (22-30) mmol/L Creatinine (0.7-1.2) mg/dL Glucose (65-100) mg/dL POC Glucose 266 H 212 H (70-105) Lactic Acid (0.7-2.0) mmol/L Lipase 11 L (13-60) units/L 08/16/17 Range/Units 19:36 WBC (4.5-11.0) K/mm3 Hgb (10.1-14.3) gm/dl MCV (79-97) fl MCH (28-32) pg RDW (13.2-15.2) % Seg Neuts % (Manual) (40.0-70.0) % Lymphocytes % (Manual) (13.4-35.0) % Seg Neutrophils # Man (1.8-7.7) K/mm3 Lymphocytes # (Manual) (1.2-5.4) K/mm3 Chloride 97.7 L (98-107) mmol/L Carbon Dioxide 20 L D (22-30) mmol/L Creatinine 0.6 L (0.7-1.2) mg/dL Glucose 135 H (65-100) mg/dL POC Glucose (70-105) Lactic Acid (0.7-2.0) mmol/L Lipase (13-60) units/L Assessment and Plan - Patient Problems (1) Alcohol dependence Current Visit: Yes Status: Acute Qualifiers: Substance use status: S Complication of substance-induced condition: C Plan to address problem: Thiamine, folic acid, multivitamin daily (2) GERD (gastroesophageal reflux disease) Current Visit: No Status: Acute Qualifiers: Esophagitis presence: E Plan to address problem: PPI therapy (3) Noncompliance Current Visit: No Status: Acute Plan to address problem: Pt counseled.
[2017-07-09 23:24] VITALS: BP 134/93
== END 2017-07-09 23:50 | disposition admitted as inpatient to this hospital (09) ==
LOC: ED 08:55
DX: E87.2 Acidosis (principal); F10.20 Alcohol dependence, uncomplicated; E11.649 Type 2 diabetes mellitus with hypoglycemia without coma; I10 Essential (primary) hypertension; F17.200 Nicotine dependence, unspecified, uncomplicated
CPT/HCPCS: 36415; 80048; 80307; 81001; 82140; 82962; 83690; 83735; 84484; 85007; 85025; 93005; 93010; 96365; 96375; 99284; G0480; J2060; J2405; J3411; J7030; J7040; 80320

== ENCOUNTER 2017-08-11 14:16 | Emergency (ER) | payer SELFPAY ==
--- NOTE | 2017-08-11 14:41 | Emergency Department Report ---
Chief Complaint: Dyspnea/Respdistress Stated Complaint: SOB/JUAN Time Seen by Provider: 08/11/17 14:36 - HPI History of Present Illness: PT c/o sob x 1 month. PT states she was seen in the ED 1 month ago. PT states she did not follow up with cardiology PT states she has brandon leg pain. PT states the R leg has hurt for two weeks and the left leg started hurting today. - ROS Review of Systems: + sob + leg swelling - Exam Vital Signs: Vital Signs 08/11/17 14:36 Temperature 98.4 F Pulse Rate 84 Respiratory 18 Rate Blood Pressure 121/89 O2 Sat by Pulse 97 Oximetry Physical Exam: no ble edema noted pt slow to answer questions no acute resp distress noted MSE screening note: Focused history and physical exam performed. Due to findings the following was ordered: labs, us, xr, ekg ED Disposition for MSE Condition: Stable
[2017-08-11 15:27] LABS: INR 0.95 (0.87-1.13)
[2017-08-11 15:28] LABS: Partial Thromboplastin Time 32.3 Sec. (24.2-36.6)
[2017-08-11 15:30] LABS: Hemoglobin 9.1 gm/dl (10.1-14.3); Mean Corpuscular HGB Conc 31 % (30-34); Mean Corpuscular Hemoglobin 23 pg (28-32); Mean Corpuscular Volume 72 fl (79-97); Platelet Count 155 K/mm3 (140-440); Red Blood Count 4.02 M/mm3 (3.65-5.03); Red Cell Distribution Width 27.1 % (13.2-15.2)
[2017-08-11 15:43] LABS: Creatine Kinase MB 2.6 ng/mL (0.0-4.0)
[2017-08-11 15:46] LABS: Alanine Aminotransferase 26 units/L (7-56); Albumin 4.2 g/dL (3.9-5); Albumin/Globulin Ratio 1.1 %; Alkaline Phosphatase 66 units/L (35-129); Anion Gap 22 mmol/L; Blood Urea Nitrogen 4 mg/dL (7-17); Carbon Dioxide 23 mmol/L (22-30); Chloride 102.4 mmol/L (98-107); Creatine Kinase 642 units/L (30-135); Glucose 111 mg/dL (65-100); Potassium 3.1 mmol/L (3.6-5.0); Sodium 144 mmol/L (137-145); Total Protein 8.1 g/dL (6.3-8.2)
--- NOTE | 2017-08-11 16:47 | XRay Report ---
CHEST 2 VIEWS INDICATION: Dyspnea. COMPARISON: 07/08/2017. FINDINGS: PA and lateral chest radiographs demonstrate normal cardiomediastinal silhouette. Clear lungs. Slight lower thoracic dextrocurvature. CONCLUSION: No acute disease in the chest. Thank you for the opportunity to participate in this patient's care.
[2017-08-11 17:00] VITALS: BP 90/58
[2017-08-11] MEDS ORDERED: NACL 0.9% 1000 ML 1,000 ML IV ONE ×2 (17:11→17:12)
--- NOTE | 2017-08-11 17:18 | Emergency Department Report ---
ED Alcohol HPI - General Chief Complaint: Dyspnea/Respdistress Stated Complaint: SOB/JUAN Time Seen by Provider: 08/11/17 14:36 Source: patient Mode of arrival: Ambulatory Limitations: No Limitations - History of Present Illness Initial Comments: 46 years old female history of alcohol ABUSE CAME TODAY WAS HER MAIN COMPLAINT OR SHORTNESS OF BREATH BILATERAL LEG TENDERNESS IN GOING ON FOR OVER A MONTH. COURSE IN THE LAST 2 WEEKS. PATIENT DENIED ANY CHEST PAIN NO NAUSEA NO VOMITING SHE ADMITTED TO DRINKING ALMOST EVERY SINGLE DAY PATIENT DOES NOT WANT DETOX. MD Complaint: alcohol intoxication Last Drink: just [employer] Chronic Alcohol Use: Yes Previous Visits for Alcohol Intoxication?: Yes Recent Trauma: No Associated Symptoms: denies other symptoms Treatments Prior to Arrival: none - Related Data Previous Rx's Medication Instructions Recorded Last Taken Type Lisinopril [Zestril TAB] 20 mg PO QDAY #30 tablet 08/24/13 08/24/13 Rx Acetaminophen [Tylenol] 500 mg PO Q6HR #30 tablet 06/19/17 Unknown Rx Pantoprazole [Protonix TAB] 20 mg PO QDAY #30 tablet. 07/08/17 Unknown Rx Pantoprazole [Protonix TAB] 20 mg PO QDAY #30 tablet. 07/08/17 Unknown Rx Ciprofloxacin HCl [Ciprofloxacin 500 mg PO Q12H #14 tab 07/09/17 Unknown Rx TAB] Folic Acid [Folvite] 1 mg PO QDAY #30 tablet 07/09/17 Unknown Rx Multivitamin Tab [Multiple Vitamin 1 each PO QDAY #30 tablet 07/09/17 Unknown Rx TAB (Theragran)] Ondansetron [Zofran Odt] 4 mg PO TID PRN #15 tab.rapdis 07/09/17 Unknown Rx Thiamine [Vitamin B-1] 100 mg PO QDAY #30 tablet 07/09/17 Unknown Rx Ketorolac [Toradol] 10 mg PO Q6H PRN #20 tablet 08/11/17 Unknown Rx Allergies Allergy/AdvReac Type Severity Reaction Status Date / Time No Known Allergies Allergy Verified 06/19/17 10:33 ED Review of Systems ROS: Stated complaint: SOB/JUAN Other details as noted in HPI Comment: All other systems reviewed and negative Constitutional: denies: chills, fever Respiratory: shortness of breath. denies: cough, SOB with exertion, SOB at rest Cardiovascular: denies: chest pain, palpitations Gastrointestinal: denies: abdominal pain, nausea, vomiting Musculoskeletal: denies: back pain Neurological: denies: headache ED Past Medical Hx - Past Medical History Hx Hypertension: Yes Hx Congestive Heart Failure: No Hx Diabetes: Yes (no meds) Hx Asthma: (no meds) Hx COPD: No - Surgical History Additional Surgical History: TONSILLECTOMY. X 3. TUBAL LIGATION - Social History Smoking Status: Current Every Day Smoker Substance Use Type: Alcohol - Medications Home Medications: Home Medications Medication Instructions Recorded Confirmed Last Taken Type Lisinopril [Zestril TAB] 20 mg PO QDAY #30 tablet 08/24/13 07/09/17 08/24/13 Rx Acetaminophen [Tylenol] 500 mg PO Q6HR #30 tablet 06/19/17 07/09/17 Unknown Rx Pantoprazole [Protonix TAB] 20 mg PO QDAY #30 tablet. 07/08/17 07/09/17 Unknown Rx Pantoprazole [Protonix TAB] 20 mg PO QDAY #30 tablet. 07/08/17 07/09/17 Unknown Rx Ciprofloxacin HCl [Ciprofloxacin 500 mg PO Q12H #14 tab 07/09/17 Unknown Rx TAB] Folic Acid [Folvite] 1 mg PO QDAY #30 tablet 07/09/17 Unknown Rx Multivitamin Tab [Multiple Vitamin 1 each PO QDAY #30 tablet 07/09/17 Unknown Rx TAB (Theragran)] Ondansetron [Zofran Odt] 4 mg PO TID PRN #15 tab.rapdis 07/09/17 Unknown Rx Thiamine [Vitamin B-1] 100 mg PO QDAY #30 tablet 07/09/17 Unknown Rx Ketorolac [Toradol] 10 mg PO Q6H PRN #20 tablet 08/11/17 Unknown Rx ED Physical Exam - General Limitations: No Limitations General appearance: alert, in no apparent distress, appears intoxicated - Head Head exam: Present: atraumatic, normocephalic - ENT ENT exam: Present: normal exam - Neck Neck exam: Present: normal inspection - Respiratory Respiratory exam: Present: normal lung sounds bilaterally. Absent: respiratory distress, wheezes, rales, rhonchi, chest wall tenderness, accessory muscle use, decreased breath sounds - Cardiovascular Cardiovascular Exam: Present: regular rate, normal rhythm, normal heart sounds - GI/Abdominal GI/Abdominal exam: Present: soft. Absent: distended, tenderness, guarding, rebound, rigid, normal bowel sounds, mass, bruit, pulsatile mass, hernia - Extremities Exam Extremities exam: Present: normal inspection. Absent: full ROM, tenderness, normal capillary refill, pedal edema, joint swelling, calf tenderness - Back Exam Back exam: Present: normal inspection. Absent: CVA tenderness (R), CVA tenderness (L) - Neurological Exam Neurological exam: Present: alert, oriented X3, CN II-XII intact - Skin Skin exam: Present: warm, dry ED Course Vital Signs 08/11/17 08/11/17 14:36 16:59 Temperature 98.4 F 98.2 F Pulse Rate 84 71 Respiratory 18 18 Rate Blood Pressure 121/89 Blood Pressure 90/58 [Left] O2 Sat by Pulse 97 98 Oximetry - Reevaluation(s) Reevaluation #1: 08/11/17 22:45 Patient is alert and oriented 3 does not appear to be intoxicated, her alcohol level is 0.18 .patient will be discharge in the care of her daughter ED Medical Decision Making - Lab Data Result diagrams: 08/11/17 14:56 08/11/17 15:03 Critical care attestation.: If time is entered above; I have spent that time in minutes in the direct care of this critically ill patient, excluding procedure time. ED Disposition Clinical Impression: Alcohol intoxication, Rhabdomyolysis Disposition: DC-01 TO HOME OR SELFCARE Is pt being admited?: No Condition: Stable Instructions: Abuse of Alcohol (ED), Rhabdomyolysis (ED) Prescriptions: Ketorolac [Toradol] 10 mg PO Q6H PRN #20 tablet PRN Reason: Pain Referrals: PRIMARY CARE,MD [Primary Care Provider] - 3-5 Days
[2017-08-11 18:39] LABS: Basophils % (Manual) 0 % (0.0-1.8); Blastocytes % (Manual) 0 %; Eosinophils % (Manual) 0 % (0.0-4.3)
[2017-08-11 18:40] LABS: Anisocytosis 1+; Diff Status Complete; Hypochromasia 2+; Platelet Estimate Consistent w Auto; Target Cells 1+
--- NOTE | 2017-08-12 12:47 | Vascular Lab Report ---
LOWER EXTREMITY VENOUS DUPLEX: REASON FOR EXAM: Pain of the lower extremities. COMMENTS ON THE RIGHT: All veins visualized are freely compressible without evidence of internal echogenicity. Flow is spontaneous and phasic throughout. COMMENTS ON THE LEFT: All veins visualized are freely compressible without evidence of internal echogenicity. Flow is spontaneous and phasic throughout. IMPRESSION: No evidence of acute or chronic deep venous thrombosis in either lower extremity.
== END 2017-08-11 23:00 | disposition home or self-care (01) ==
LOC: ED 14:16
DX: M62.82 Rhabdomyolysis (principal); F10.120 Alcohol abuse with intoxication, uncomplicated; I10 Essential (primary) hypertension; E11.9 Type 2 diabetes mellitus without complications; F17.210 Nicotine dependence, cigarettes, uncomplicated
CPT/HCPCS: 36415; 71020; 80053; 82140; 82550; 82553; 83880; 84484; 84703; 85007; 85025; 85610; 85730; 93005; 93010; 93970; 96360; 96361; 99284; G0480; J7030; 80320

== ENCOUNTER 2017-08-26 15:30 | Emergency (ER) | payer OTHER ==
[2017-08-26 15:51] VITALS: BP 123/90
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
[2017-08-26 19:02] LABS: Mucus,Urine FEW /HPF
[2017-08-26 19:26] LABS: Bilirubin,Urine NEG (Negative); Blood,Urine SM (Negative); Ketones,Urine NEG (Negative); Leukocyte Esterase,Urine TR (Negative); Nitrite,Urine NEG (Negative); Protein,Urine <15 mg/dL mg/dL (Negative); Urobilinogen,Urine < 2.0 mg/dL (<2.0)
== END 2017-08-26 23:09 | disposition left against medical advice (07) ==
LOC: ED 15:30
DX: Z53.21 Procedure and treatment not carried out due to patient leaving prior to being seen by health care provider (principal)
CPT/HCPCS: 81001; 81025

== ENCOUNTER 2018-02-25 09:47 | Outpatient (CLI) | payer OTHER ==
--- NOTE | 2018-02-25 10:56 | XRay Report ---
LUMBOSACRAL SPINE, 3 VIEWS: History: Back pain Findings: No comparison. There is normal bone mineralization. Normal height and alignment of the lumbar vertebral bodies. No fracture, subluxation or bone lesion. Mild disc space narrowing is identified at L2-3 and L5-S1. Minimal diffuse facet arthropathy. The sacrum and SI joints are unremarkable. Impression: Mild lumbar spondylosis as described. No acute process.
== END 2018-02-25 09:48 | disposition home or self-care (01) ==
LOC: XRAY 09:47
PROVIDERS: ATTEND Internal Medicine
DX: M47.896 Other spondylosis, lumbar region (principal); M12.88 Other specific arthropathies, not elsewhere classified, other specified site; M53.86 Other specified dorsopathies, lumbar region; I10 Essential (primary) hypertension; J98.4 Other disorders of lung
CPT/HCPCS: 72100

== ENCOUNTER 2019-12-08 05:18 | Emergency (ER) | payer SELFPAY ==
[2019-12-08 05:27] VITALS: BP 94/68
[2019-12-08] MEDS ORDERED: ACETAMINOPHEN 500 MG TAB PO ONE (08:40)
--- NOTE | 2019-12-08 08:41 | Emergency Department Report ---
ED Back Pain/Injury HPI - General Chief Complaint: Extremity Injury, Lower Stated Complaint: LEG PAIN X3 MONTHS Time Seen by Provider: 12/08/19 07:22 Source: patient, EMS Limitations: No Limitations - History of Present Illness Initial Comments: 49 yo came to ER last pm p drinking ETOH because she had no pain meds for her a/c back pain. no fever. no tachycardia. no hypotension. No fall or trauma. Pain is throbbing and burning to low back and does rad to legs at times. Has not seen PCP or pain MD Pt awakened from sleep upon provider entering room for exam. Pt lives alone. MD Complaint: back pain -: Gradual, month(s) Similar Symptoms Previously: Yes Place: home Radiation: none Consistency: constant Improves With: immobilization Worsens With: movement Associated Symptoms: denies other symptoms - Related Data Previous Rx's Medication Instructions Recorded Last Taken Type lisinopriL [Zestril TAB] 20 mg PO QDAY #30 tablet 08/24/13 08/24/13 Rx Acetaminophen [Tylenol] 500 mg PO Q6HR #30 tablet 06/19/17 Unknown Rx Pantoprazole [Protonix TAB] 20 mg PO QDAY #30 tablet. 07/08/17 Unknown Rx Pantoprazole [Protonix TAB] 20 mg PO QDAY #30 tablet. 07/08/17 Unknown Rx Ciprofloxacin HCl [Ciprofloxacin 500 mg PO Q12H #14 tab 07/09/17 Unknown Rx TAB] Folic Acid [Folvite] 1 mg PO QDAY #30 tablet 07/09/17 Unknown Rx Multivitamin Tab [Multiple Vitamin 1 each PO QDAY #30 tablet 07/09/17 Unknown Rx TAB (Theragran)] Ondansetron [Zofran Odt] 4 mg PO TID PRN #15 tab.rapdis 07/09/17 Unknown Rx Thiamine [Vitamin B-1] 100 mg PO QDAY #30 tablet 07/09/17 Unknown Rx Ketorolac [Toradol] 10 mg PO Q6H PRN #20 tablet 08/11/17 Unknown Rx Ibuprofen [Motrin] 800 mg PO Q8HR PRN #30 tablet 12/08/19 Unknown Rx Allergies Allergy/AdvReac Type Severity Reaction Status Date / Time No Known Allergies Allergy Verified 06/19/17 10:33 ED Review of Systems ROS: Stated complaint: LEG PAIN X3 MONTHS Other details as noted in HPI Comment: All other systems reviewed and negative ED Past Medical Hx - Past Medical History Medical history: hypertension cbp Surgical history: no surgical history Psychiatric history: no pertinent history DOG RAISER history: no DOG RAISER history LMP comments: none Family history: no significant family history - Social History Smoking Status: Current Every Day Smoker Alcohol use: occasionally Drug use: none ED Back Pain Physical Exam - Exam General: Vital signs noted. No distress. Alert and acting appropriately. Back/Abdomen: No Abdominal Tenderness, No Perithoracic Tenderness, No Perilumbar Tenderness, No Sacroiliac Tenderness, No Flank Tenderness, No Straight Leg Raise Pain Neuro: Yes Normal Sensation, Yes Normal DTR's, Yes Normal Gait, No Motor Weakness ED Course Vital Signs 12/08/19 05:22 Temperature 97.0 F L Pulse Rate 84 Respiratory 18 Rate Blood Pressure 94/68 O2 Sat by Pulse 98 Oximetry ED Medical Decision Making - Medical Decision Making medicated with OTC rx in ER educated on importance of seeing pcp and not using ETOH for pain dc home with friend VSS ambulatory non toxic and non ill appearing. Vital Signs 12/08/19 05:22 Temperature 97.0 F L Pulse Rate 84 Respiratory 18 Rate Blood Pressure 94/68 O2 Sat by Pulse 98 Oximetry - Differential Diagnosis a/c pain Critical care attestation.: If time is entered above; I have spent that time in minutes in the direct care of this critically ill patient, excluding procedure time. ED Disposition Clinical Impression: Noncompliance, Chronic back pain, Alcohol abuse Disposition: DC-01 TO HOME OR SELFCARE Is pt being admited?: No Does the pt Need Aspirin: No Condition: Stable Instructions: Chronic Back Pain (ED) Additional Instructions: WARM BATHS MED ORDERED TODAY FOLLOW UP WITH PCP REFERRAL BELOW Prescriptions: Ibuprofen [Motrin] 800 mg PO Q8HR PRN #30 tablet PRN Reason: Pain, Moderate (4-6) Referrals: SERGIO ABAD MD [Staff Physician] - 3-5 Days Time of Disposition: 08:42
== END 2019-12-08 08:56 | disposition home or self-care (01) ==
LOC: ED 05:18
DX: G89.29 Other chronic pain (principal); M54.5 Low back pain; F17.200 Nicotine dependence, unspecified, uncomplicated
CPT/HCPCS: 99283